=== PATIENT | male | born 1950 | race Two or more races ===

== ENCOUNTER 2020-06-11 11:44 | Emergency (ER) | payer OTHER ==
[~2020-06-11] VITALS: Ht 165.1 cm; Wt 72.7 kg
[2020-06-11 12:59] VITALS: BP 138/62
== END 2020-06-11 13:00 | disposition home or self-care (01) ==
LOC: EMS 11:45
DX: B86 Scabies (principal); R03.0 Elevated blood-pressure reading, without diagnosis of hypertension; F17.210 Nicotine dependence, cigarettes, uncomplicated
CPT/HCPCS: 99283; Z7502

== ENCOUNTER 2020-06-23 22:36 | Emergency (ER) | payer OTHER ==
[~2020-06-23] VITALS: Ht 165.1 cm; Wt 77.3 kg
[2020-06-23] MEDS ORDERED: DiphenhydrAMINE HCL 25 MG CAPSULE PO ONE (23:30)
[2020-06-24 02:15] VITALS: BP 139/60
== END 2020-06-24 02:34 | disposition home or self-care (01) ==
LOC: EMS 22:36
DX: L29.9 Pruritus, unspecified (principal); E11.9 Type 2 diabetes mellitus without complications; F17.210 Nicotine dependence, cigarettes, uncomplicated
CPT/HCPCS: Z7502; Z7610

== ENCOUNTER 2021-01-25 09:18 | Emergency (ER) | payer OTHER ==
[~2021-01-25] VITALS: Ht 165.1 cm; Wt 79.5 kg
[2021-01-25 10:00] VITALS: BP 137/77
== END 2021-01-25 10:20 | disposition home or self-care (01) ==
LOC: EMS 09:18
DX: B02.9 Zoster without complications (principal); E11.9 Type 2 diabetes mellitus without complications; F17.210 Nicotine dependence, cigarettes, uncomplicated
CPT/HCPCS: 99283; Z7502

== ENCOUNTER 2021-02-10 12:42 | Emergency (ER) | payer OTHER ==
[~2021-02-10] VITALS: Ht 165.1 cm; Wt 79.5 kg
[2021-02-10 15:00] VITALS: BP 146/92
[2021-02-10] MEDS ORDERED: IBUPROFEN 800 MG TABLET PO ONE (15:00)
== END 2021-02-10 15:10 | disposition home or self-care (01) ==
LOC: EMS 13:06
DX: R21 Rash and other nonspecific skin eruption (principal)
CPT/HCPCS: 99282; Z7502; Z7610